=== PATIENT | female | born 1980 | race Caucasian/White ===

== ENCOUNTER 2017-02-04 09:50 | Emergency (ER) | payer BC, OTHER ==
[~2017-02-04] VITALS: Ht 175.3 cm; Wt 74.8 kg
[2017-02-04] MEDS ORDERED: PROGESTERONE100 MG PO (10:07)
[2017-02-04 10:40] LABS: HEMATOCRIT 39.5 % (37.0-47.0); HEMOGLOBIN 13.5 gm/dL (12.0-15.0); MCH 31.4 pg (26.0-34.0); MCHC 34.3 g/dL (28.0-37.0); MCV 91.6 fL (80.0-100.0); RBC 4.32 mil/uL (4.20-5.00); RDW 12.3 % (10.5-14.5); WBC 9.9 thou/uL (4.0-11.0)
[2017-02-04 10:51] LABS: CALCIUM 9.2 mg/dL (8.5-10.1); CREATININE 0.4 mg/dL (0.6-1.0); POTASSIUM 3.8 mmol/L (3.5-5.1)
[2017-02-04 11:25] LABS: URINE BLOOD 2+ (Negative); URINE COLOR YELLOW; URINE GLUCOSE-RANDOM* NEGATIVE (Negative); URINE KETONES 2+ (Negative); URINE NITRITE NEGATIVE (Negative); URINE PROTEIN (DIPSTICK) NEGATIVE (Negative); URINE SPECIFIC GRAVITY >= 1.030 (1.003-1.035); URINE UROBILINOGEN 0.2 E.U./dl (0.2-1.0)
[2017-02-04 11:28] LABS: ICTOTEST (BILI CONFIRMATORY) Negative (Negative); URINE BILIRUBIN NEGATIVE (Negative)
[2017-02-04 12:01] LABS: CASTS None Seen /LPF (None Seen); SQUAMOUS 0-3 Few /LPF (0-3)
[2017-02-04 12:02] LABS: URINE WBC 0-5 Rare /HPF (0-5)
[2017-02-04 12:03] LABS: BACTERIA 1-9 Few /HPF (None Seen); CRYSTALS None Seen /LPF (None Seen); URINE RBC 0-2 Rare /HPF (0-2)
[2017-02-04 16:07] VITALS: BP 137/80
[2017-02-05 17:09] LABS: CHLAMYDIA TRACHOMATIS-PCR Negative (Negative); NEISSERIA GONORRHEA-PCR Negative (Negative)
== END 2017-02-04 16:08 | disposition short-term general hospital (02) ==
LOC: ER 09:50
PROVIDERS: Physician Assistant
DX: O00.80 Other ectopic pregnancy without intrauterine pregnancy (principal)